=== PATIENT | male | born 1970 | race Native Hawaiian/Other Pacific Islander ===

== ENCOUNTER 2017-04-29 13:28 | Outpatient (CLI) | payer OTHER ==
[2017-04-29 14:07] LABS: PLATELET COUNT 246 K/uL (142-355)
[2017-04-29 14:31] LABS: POTASSIUM 4.3 mmol/L (3.6-5.2); SODIUM 139 mmol/L (136-145)
== END 2017-04-29 19:12 | disposition home or self-care (01) ==
LOC: LABW 13:28
PROVIDERS: Nurse Practitioner Family
DX: G25.2 Other specified forms of tremor (principal)
CPT/HCPCS: 36415; 80053; 82533; 82607; 82746; 83540; 83550; 84260; 84436; 84443; 85027; Q9963